=== PATIENT | male | born 1985 | race Caucasian/White ===

== ENCOUNTER 2017-03-03 20:10 | Emergency (ER) | payer OTHER ==
[2017-03-03] MEDS ORDERED: Amoxicillin/Clavulanate TAB* 875 MG PO ONE (21:41)
--- NOTE | 2017-03-03 21:50 | ED ---
Bite Injury/Animal - HPI Summary HPI Summary: 32M presents with dog bite left hand today. dog was known. his dog was fighting with neighbors dog and he tried to break them up. rabies up to date on dogs. tetanus was last year. cleaned wound with soap and water. bites happened today. has minimal pain. - History of Current Complaint Chief Complaint: EDAnimalBite Stated Complaint: DOG BITE LT HAND Time Seen by Provider: 03/03/17 20:50 Pain Intensity: 3 - Allergies/Home Medications Allergies/Adverse Reactions: Allergies Allergy/AdvReac Type Severity Reaction Status Date / Time No Known Allergies Allergy Verified 03/03/17 20:14 PMH/Surg Hx/FS Hx/Imm Hx Endocrine/Hematology History: Denies: Hx Anticoagulant Therapy, Hx Diabetes Respiratory History: Reports: Hx Asthma Infectious Disease History: No Infectious Disease History: Denies: Traveled Outside the in Last 30 Days - Family History Known Family History: Negative: Cardiac Disease - Social History Alcohol Use: Weekly Substance Use Type: Reports: None Smoking Status (MU): Never Smoked Tobacco Review of Systems Negative: Fever Negative: Chest Pain Negative: Shortness Of Breath Positive: Other - left hand animal bite All Other Systems Reviewed And Are Negative: Yes Physical Exam Triage Information Reviewed: Yes Vital Signs On Initial Exam: Initial Vitals Temp Pulse Resp BP Pulse Ox 98.6 F 66 14 113/64 100 03/03/17 20:16 03/03/17 20:16 03/03/17 20:16 03/03/17 20:16 03/03/17 20:16 Vital Signs Reviewed: Yes Appearance: Positive: Well-Appearing Skin: Positive: Warm, Dry, Other - one scratch and 3 small superifical laceration 1/2 cm each on dorsum of left hand Head/Face: Positive: Normal Head/Face Inspection Eyes: Positive: Normal, Conjunctiva Clear Respiratory/Lung Sounds: Positive: Clear to Auscultation, Breath Sounds Present Cardiovascular: Positive: Normal, RRR Musculoskeletal: Positive: Strength/ROM Intact - left hand, Other - good pulses , capillary refill<2 secs Diagnostics - Vital Signs Vital Signs Temp Pulse Resp BP Pulse Ox 03/03/17 20:16 98.6 F 66 14 113/64 100 - Laboratory Lab Statement: Any lab studies that have been ordered have been reviewed, and results considered in the medical decision making process. Bite Injury Course/Dx - Course Course Of Treatment: 32M presents with dog bite left hand today. dog was known. his dog was fighting with neighbors dog and he tried to break them up. rabies up to date on dogs. tetanus was last year. cleaned wound with soap and water. bites happened today. has minimal pain. has full ROM and does not appear to be any tendon damage as bites are superficial. cleaned area with hibicleanse and irrigated with 500cc. placed on augmentin. told if develop any signs of infection to return to ED. patient understands and agrees with plan. - Diagnoses Differential Diagnosis/HQI/PQRI: Positive: Crush Injury, Laceration, Puncture, Rabies Exposure Provider Diagnosis: Dog bite of left hand Discharge - Discharge Plan Condition: Good Disposition: HOME Prescriptions: Amoxicillin/Clavulanate TAB* [Augmentin TAB 875*] 875 mg PO BID #9 tab Patient Education Materials: Animal Bite (ED) Referrals: Non Staff,Doctor [Primary Care Provider] - Additional Instructions: Wash area with soap and water twice a day Place Neosporin on area Take augmentin twice a day for 5 days Return to ED if develop any sign of infection such as spreading redness, pus, or fever, or any new or worsening symptoms
[2017-03-03 22:18] VITALS: BP 105/65
== END 2017-03-03 22:34 | disposition home or self-care (01) ==
LOC: ED 20:10
DX: S61.452A Open bite of left hand, initial encounter (principal); W54.0XXA Bitten by dog, initial encounter; Y93.9 Activity, unspecified; Y92.9 Unspecified place or not applicable
CPT/HCPCS: 99282; A9270-GY